=== PATIENT | male | born 1980 | race Two or more races ===

== ENCOUNTER 2023-09-10 09:45 | Outpatient (REF) | payer MEDICAID, SELFPAY ==
--- NOTE | ~2023-09-10 | XR_ITS ---
EXAMINATION: XR KNEE, LEFT CLINICAL INFORMATION: Left knee pain. COMPARISON: None available. TECHNIQUE: AP, oblique, and lateral views of the left knee. FINDINGS: No fracture or joint effusion. Alignment is anatomic. Joint spaces are maintained. No abnormal soft tissue calcification. XR/XR knee LT 2V IMPRESSION: Unremarkable examination.
== END 2023-09-10 09:46 | disposition home or self-care (01) ==
LOC: HO.HHCX 09:45
PROVIDERS: Visit Provider Nurse Practitioner
DX: M25.562 Pain in left knee (principal)
CPT/HCPCS: 73560

== ENCOUNTER 2024-07-10 18:45 | Inpatient (IN) | payer MEDICAID, SELFPAY ==
--- NOTE | ~2024-07-10 | CT_ITS ---
CLINICAL HISTORY: neck trauma CT cervical spine without contrast Comparison: None Findings: Examination is limited by motion artifact. Normal vertebral body alignment. No significant degenerative change. No acute fractures or dislocations. No acute findings on limited view of the intracranial contents. Ground-glass opacity of the lung parenchyma. Enlarged right cervical lymph nodes: 2 x 2.4 cm right level 2A lymph node. IMPRESSION: No acute fracture or malalignment of the cervical spine. Enlarged right cervical lymph nodes. Ground-glass opacity of the lung parenchyma. This document has been electronically signed by: Abelino Cruz MD on 07/10/2024 20:29:06
--- NOTE | ~2024-07-10 | CT_ITS ---
CLINICAL HISTORY: altered found down CT head without contrast Comparison: None Findings: No intra-axial mass, midline shift, hydrocephalus, or acute hemorrhage. No significant atrophy-like change or white matter disease. There is opacification of the right nasal cavity and ethmoid sinus. The orbits are within normal limits. There is no acute fracture. IMPRESSION: 1. No acute intracranial findings. This document has been electronically signed by: Abelino Cruz MD on 07/10/2024 20:34:13
--- NOTE | ~2024-07-10 | XR_ITS ---
CLINICAL HISTORY: overdose, hypoxia concern for aspiration 1 view chest x-ray Comparison: None Findings: Increased opacity of the right lung. There is opacity of the left lung base. Normal size heart. No acute fracture. IMPRESSION: There is opacities of the bilateral lungs. Pneumonia can not be excluded. This document has been electronically signed by: Abelino Cruz MD on 07/10/2024 20:19:31
[2024-07-10 19:00] VITALS: BP 149/98; PULSE 115; RESP 20; TEMP 37.2; O2SAT 95; BMI 38.8
--- NOTE | 2024-07-10 19:17 | ECG_ITS ---
Test Reason : OD Blood Pressure : */* mmHG Vent. Rate : 107 BPM Atrial Rate : 107 BPM P-R Int : 144 ms QRS Dur : 84 ms QT Int : 322 ms P-R-T Axes : 52 37 54 degrees QTcB Int : 429 ms Sinus tachycardia Otherwise normal ECG No previous ECGs available Referred By: Nathalie Guerrero Electronically Signed By: KSENIA KEEN
--- NOTE | 2024-07-10 19:23 | PC.NURSE ---
pt biba from home, alert but not answering questions at time of arrival. per ems, pt was found in bathroom by family, unresponsive, reports he was given 8mg of narcan. on arrival pt intermittently thrashing and pt is diaphoretic. pt is tachy 100-120bpm. foreign language interpreter brought to bedside. pt reports he injected heroin but denies si/hi. pt is reporting abdominal pain at this time. aware and at bedside.
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
[2024-07-10] MEDS: Metoclopramide HCl 10 MG/2 ML VIAL IVPUSH (20:00)
[2024-07-10 20:02] LABS: MANUAL DIFF FLAG NO
[2024-07-10 20:07] LABS: Basophils Percent Auto 0.2 % (0-2); Eosinophils Percent Auto 0.3 % (0-4); Hematocrit 41.2 % (42.0-52.0); Hemoglobin 13.4 g/dl (14.0-18.0); Imm Gran Abs Auto 0.05 X10*3/uL (0.00-0.03); Imm Gran Pct Auto 0.4 % (0.0-0.4); Lymphocytes Absolute Auto 0.9 X10*3/uL (1.2-4.9); Lymphocytes Percent Auto 6.4 % (20-40); Mean Corpuscular HGB Conc 32.5 g/dl (31.0-36.0); Mean Corpuscular Hemoglobin 27.3 pg (27.0-33.0); Mean Corpuscular Volume 84.1 fL (80.0-98.0); Mean Platelet Volume 10.4 fL (9.4-12.4); Monocytes Absolute Auto 0.7 X10*3/uL (0.1-1.2); Neutrophils Absolute Auto 11.8 x10*3/uL (2.0-8.3); Neutrophils Percent Auto 87.7 % (45-73); Platelet Count 273 X10*3/uL (160-400); Red Cell Distribution Width 13.5 % (11.0-16.0); White Blood Count 13.4 X10*3/uL (4.8-10.8)
--- NOTE | 2024-07-10 20:13 | PC.NURSE ---
pt is hard stick, x4 attempts made. at bedside placing ultrasound guided iv. one set of cultures obtained. attempting to obtain second set.
[2024-07-10 20:27] LABS: Alanine Aminotransferase 23 U/L (0-40); Albumin Level 3.9 g/dL (3.5-5.0); Alkaline Phosphatase 74 U/L (39-117); Anion Gap 12 (12-20); Aspartate Amino Transferase 36 U/L (5-37); Bilirubin Direct 0.1 mg/dL (0.0-0.5); Bilirubin Total 0.3 mg/dL (0.0-1.0); Blood Urea Nitrogen 9 mg/dL (9-16); Calcium 9.1 mg/dL (8.4-10.2); Carbon Dioxide 26 mmol/L (22-29); Chloride 109 mmol/L (96-108); Creatinine Clr Calc Pharmacy 152.8; Estimated Glomerular Filt Rate > 60; Ethanol < 10 mg/dL; Glucose Random 70 mg/dL (60-115); Lipase 32 U/L (8-78); Magnesium 2.2 mg/dL (1.6-2.6); Potassium 3.9 mmol/L (3.3-5.1); Sodium 143 mmol/L (135-145); Total Protein 7.7 g/dL (6.5-8.0)
[2024-07-10 20:29] LABS: Lactic Acid 2.2 mmol/L (0.5-2.0)
[2024-07-10] MEDS: Lactated Ringers 1,000 ML 999 ML IV (20:47)
[2024-07-10] MEDS: Piperacillin Sodium/Tazobactam 3.375 GM in 0.9 % Sodium Chloride 50 ML IV (20:47)
[2024-07-10 20:52] LABS: Troponin-I High Sensitivity 46.4 ng/L (<3.5-35.0)
--- NOTE | 2024-07-10 20:54 | P.HPHOSP_ITS ---
History of Present Illness Date of Service: 07/10/24 Chief Complaint: Altered mentation This is a 43-year-old male with pertinent history of mood disorder, polysubstance use disorder who was brought to the emergency department for evaluation after he was found unresponsive. Patient was found unresponsive by family and EMS was called. EMS gave 8 mg of Narcan and patient woke up. History obtained with the help of diplomatic interpreter/translator. Patient does admit injecting IV heroin on the day of presentation. Denies suicidal ideation. He states he was doing okay prior to passing out. Does complain of dyspnea and cough. Unable to obtain complete review of systems as he is lethargic. In the emergency department, patient was found requiring 2 L supplemental oxygen. Imaging with pneumonia. Also found to have leukocytosis. Review of Systems 2 Review of Systems: Yes Unobtainable due to mental status PMFSH Medical History Opiate use Pertinent family history: No family history of early CAD Social History Patient Tobacco Use Status: Tobacco use Unknown Advance Directives: No Advance Directives Information Provided: No Do you have a plan to hurt others: No Plan Meds Allergies Allergy/AdvReac Type Severity Reaction Status Date / Time No Known Allergies Allergy Verified 07/10/24 19:25 Active Medications: Current Medications Acetaminophen (Acetaminophen 325 Mg Tablet) 650 mg PO Q6H PRN PRN Reason: Pain, Mild 1-3,fever,headache Calcium Carbonate (Calcium Carbonate 750 Mg Tab.Chew) 750 mg PO Q4H PRN PRN Reason: Heartburn Enoxaparin Sodium (Enoxaparin Sodium 40 Mg/0.4 Ml Syringe) 40 mg SUBCUT Q24H JUANITA Lactated Ringer's (Lr) 1,000 mls @ 999 mls/hr IV .Q1H1M ONE Stop: 07/10/24 21:28 Last Admin: 07/10/24 20:47 Dose: 999 mls/hr Ampicillin Sodium/Sulbactam (Sodium 3 gm/ Sodium Chloride) 100 mls @ 200 mls/hr IV Q6H JUANITA Magnesium Hydroxide (Milk Of Magnesia 30 Ml Oral.Susp) 30 ml PO DAILY PRN PRN Reason: Constipation Melatonin (Melatonin 3 Mg Tablet) 6 mg PO BEDTIME PRN PRN Reason: Insomnia Ondansetron HCl (Ondansetron Hcl 4 Mg/2 Ml Vial) 4 mg IVPUSH Q8H PRN PRN Reason: Nausea and Vomiting Sodium Chloride (0.9 % Sodium Chloride Flush 3 Ml Syringe) [facility]ations ?Medication ?Instructions ?Recorded ?Confirmed ?Last Taken ?Type albuterol sulfate 90 mcg/actuation 2 puff inhalation Q4H PRN wheezing 07/10/24 Unknown History aerosol inhaler (Ventolin HFA) buprenorphine 8 mg-naloxone 2 mg film sublingual 07/10/24 Unknown History sublingual film (Suboxone) buprenorphine 8 mg-naloxone 2 mg film sublingual 07/10/24 Unknown History sublingual film (Suboxone) naloxone 4 mg/actuation nasal intranasal 07/10/24 Unknown History spray (Narcan) naloxone 4 mg/actuation nasal intranasal 07/10/24 Unknown History spray (Narcan) nicotine (polacrilex) 4 mg gum 4 mg PO 07/10/24 Unknown History nicotine 21 mg/24 hr daily 1 patch topical QAM 07/10/24 Unknown History transdermal patch Physical Exam 2 Vital Signs and Narrative: Vital Signs: Last Vital Signs Temp 98.9 F 07/10/24 19:00 Pulse 115 H 07/10/24 19:00 Resp 20 07/10/24 19:00 BP 149/98 H 07/10/24 19:00 Pulse Ox 95 07/10/24 19:00 O2 Del Method Room Air 07/10/24 19:00 BMI result Body Mass Index 38.8 Middle-aged male lying in bed in no distress on supplemental oxygen Neck supple, no JVD, upper lip swelling and facial bruising seen Regular rate and rhythm, S1-S2 heard Bilateral crackles heard Abdomen soft nontender, no guarding, no rigidity Patient is drowsy but awakens to verbal stimulus, answers questions and follows commands. No focal motor deficit Psych: Lethargic No pedal edema Results Labs 07/10/24 19:56 07/10/24 19:56 Labs: Laboratory Results - last 24 hr 07/10/24 19:56 MCV 84.1 MCH 27.3 MCHC 32.5 RDW 13.5 Plt Count 273 MPV 10.4 Immature Gran % (Auto) 0.4 Neut % (Auto) 87.7 H Lymph % (Auto) 6.4 L [place] % (Auto) 5.0 Eos % (Auto) 0.3 Baso % (Auto) 0.2 Lymph # (Auto) 0.9 L [place] # (Auto) 0.7 Eos # (Auto) 0.0 Baso # (Auto) 0.0 Abs Immat Gran (auto) 0.05 H Absolute Neuts (auto) 11.8 H Absolute Nucleated RBC 0.000 Nucleated RBC % (auto) 0.0 Anion Gap 12 Estim Creat Clear Calc 152.8 Estimated GFR > 60 Random Glucose 70 Lactic Acid 2.2 H* Calcium 9.1 Magnesium 2.2 Total Bilirubin 0.3 Direct Bilirubin 0.1 AST 36 ALT 23 Alkaline Phosphatase 74 Total Creatine Kinase 409 H Total Protein 7.7 Albumin 3.9 Lipase 32 Hold Green Top See Note Ethyl Alcohol < 10 Assessment and Plan (1) Aspiration pneumonia: Qualifiers: Aspiration pneumonia type: unspecified Laterality: bilateral Lung location: lower lobe of lung Qualified Code(s): J69.0 - Pneumonitis due to inhalation of food and vomit Status: Acute (2) Drug overdose: Qualifiers: Encounter type: initial encounter Injury intent: accidental or unintentional Qualified Code(s): T50.901A - Poisoning by unspecified drugs, medicaments and biological substances, accidental (unintentional), initial encounter Status: Acute (3) Acidosis, lactic: Status: Acute Plan This is a 43-year-old male with pertinent history of mood disorder, polysubstance use disorder who was brought to the emergency department for evaluation after he was found unresponsive. #. Acute toxic encephalopathy due to accidental overdose of heroin: Patient given 8 mg of Narcan. Continue to monitor mentation. #. Acute hypoxemic respiratory failure and sepsis due to aspiration pneumonia in the setting of above: Will admit patient with supplemental oxygen. Initiating IV Unasyn. Lactic acid blood culture obtained. Resuscitated IV crystalloids #. Polysubstance use disorder: Consulted Addiction Team. UDS pending #. Mood disorder: Patient mentioned he has been having uncontrolled anxiety and depression. Will consult psych to optimize #. Acute lactic acidosis due to sepsis #. Elevated troponin: Type 2 in the setting of increased demand Med rec pending DVT prophylaxis: Lovenox Full code Admit as inpatient and will require two night minimum hospital stay for supplemental oxygen, IV antibiotics (as above), which is not possible in a lesser acute setting. Quality Stroke Does the patient have a stroke diagnosis?: No VTE Prior VTE?: No VTE Risk Level:: Medical - moderate - high VTE Device Contraindication: Treatment Not Indicated VTE Drug Contraindication: N/A - Med Ordered
[2024-07-10 20:58] LABS: B Type Natriuretic Peptide 41 pg/mL (<100)
[2024-07-10 21:15] VITALS: BP 143/91; PULSE 95; RESP 20; TEMP 37.2; O2SAT 95
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
--- NOTE | 2024-07-10 21:40 | PC.NURSE ---
pt changed into green gown, pt arrived to ed naked, pt did not have any belongings.
[2024-07-10 22:01] LABS: Reflex Lactate? Lactic Acid Added
--- NOTE | 2024-07-10 22:19 | PHA.MEDREC ---
Addendum entered by Hannah Caldwell RP 07/10/24 22:24: Reviewed by [facility] Original Note: Pharmacy Consult ? Medication Reconciliation Pharmacy has completed the medication reconciliation. Spoke with patient utilizing translator and interpreter and he stated he is not taking any medications at this time and stated he just got out of intermediate about 1 week ago.
[2024-07-11] VITALS (8 sets, daily range): BP systolic 122–155; BP diastolic 74–92; PULSE 72–85; RESP 14–20; TEMP 36.6–37.3; O2SAT 92–98
[2024-07-11 01:12] LABS: Amphetamine Screen Urine Not Detected (Not Detect); Barbiturates, Urine Not Detected (Not Detect); Benzodiazepines Screen Urine Not Detected (Not Detect); Buprenorphine Scr Positive (Not Detect); Cannabinoid Screen Urine Not Detected (Not Detect); Cocaine Screen Urine POSITIVE (Not Detect); Fentanyl, urine POSITIVE (Not Detect); Methadone Screen, Urine Not Detected (Not Detect); Opiate Screen Urine POSITIVE (Not Detect); Oxycodone Screen Urine Not Detected (Not Detect); Phencyclidine Screen Urine Not Detected (Not Detect)
[2024-07-11] MEDS: Ampicillin Sodium/Sulbactam Na 3 GM in 0.9 % Sodium Chloride 100 ML IV ×4 (03:44→21:01)
[2024-07-11 06:16] LABS: MANUAL DIFF FLAG NO
[2024-07-11 06:35] LABS: Basophils Percent Auto 0.3 % (0-2); Eosinophils Absolute Auto 0.1 X10*3/uL (0.0-0.4); Eosinophils Percent Auto 0.4 % (0-4); Hematocrit 36.1 % (42.0-52.0); Hemoglobin 11.5 g/dl (14.0-18.0); Imm Gran Abs Auto 0.06 X10*3/uL (0.00-0.03); Imm Gran Pct Auto 0.4 % (0.0-0.4); Lymphocytes Absolute Auto 2.3 X10*3/uL (1.2-4.9); Lymphocytes Percent Auto 16.3 % (20-40); Mean Corpuscular HGB Conc 31.9 g/dl (31.0-36.0); Mean Corpuscular Hemoglobin 27.1 pg (27.0-33.0); Mean Corpuscular Volume 85.1 fL (80.0-98.0); Mean Platelet Volume 10.7 fL (9.4-12.4); Monocytes Absolute Auto 0.6 X10*3/uL (0.1-1.2); Monocytes Percent Auto 4.4 % (2-11); Neutrophils Absolute Auto 10.8 x10*3/uL (2.0-8.3); Neutrophils Percent Auto 78.2 % (45-73); Platelet Count 223 X10*3/uL (160-400); Red Blood Count 4.24 X10*6/uL (4.60-5.80); Red Cell Distribution Width 13.7 % (11.0-16.0); White Blood Count 13.9 X10*3/uL (4.8-10.8)
[2024-07-11 06:46] LABS: Anion Gap 10 (12-20); Blood Urea Nitrogen 11 mg/dL (9-16); Calcium 8.2 mg/dL (8.4-10.2); Carbon Dioxide 27 mmol/L (22-29); Chloride 107 mmol/L (96-108); Creatinine Clr Calc Pharmacy 174.4; Estimated Glomerular Filt Rate > 60; Glucose Random 87 mg/dL (60-115); Potassium 4.4 mmol/L (3.3-5.1); Sodium 140 mmol/L (135-145)
[2024-07-11] MEDS: 0.9 % Sodium Chloride Flush 3 ML SYRINGE IVFLUSH ×3 (08:00→23:09)
--- NOTE | 2024-07-11 09:02 | MHC.EDTECH ---
pt arrived to overflow, remains sleeping during transfer, call cortez placed in reach
--- NOTE | 2024-07-11 09:56 | HO.ADDICT_ITS ---
History of Present Illness Date of Service: 07/11/2024 Chief Complaint: AMS Reason for Consult: OUD with OD Sources of Information: patient interviewed and chart reviewed HPI Narrative: Patient is a 43 year old Sami speaking male, who presented to [facility] ED following overdose requiring narcan administration. He was subsequently admitted with aspiration pneumonia. Patient seen in overflow bed 5. He was asleep upon approach, and woke easily to voice. He appears diaphoretic, and reports body aches. Denies any other withdrawal sx He has a large abrasion on his forehead, and his lip is quite swollen. He has no recollection of what occurred, and asked who found him. He states he was at his mother's house. Substance Use History: -long history of opiate use. Day of OD he reports using 3 bags IV -currently prescribed Suboxone 8mg TID via [facility]. States he just restarted treatment there recently, and had been taking his medication daily, with the exception of yesterday. -Reports 2 previous overdoses -several admissions to [facility] level of care -history of methadone treatment--did not like it -cocaine use IV, currently -denies any alcohol use. denies any other substance use Labs reviewed---Hepatitis and HIV screen drawn today Review of Systems Constitutional: Reports as per HPI, Reports excessive sweating and Reports malaise Cardiovascular: Denies dyspnea Respiratory: Denies dyspnea Gastrointestinal: Denies loose stools and Denies nausea Endocrine: Reports excessive sweating Diagnostics Vital Signs (24Hr): Vital Signs - 24 hr 07/10/24 19:00 07/10/24 21:15 07/11/24 03:45 Temperature 98.9 F 99.0 F 99.1 F Pulse Rate 115 H 95 75 Respiratory Rate 20 20 16 Blood Pressure 149/98 H 143/91 H 122/82 Pulse Oximetry 95 95 98 Oxygen Delivery Method Room Air Nasal Cannula Nasal Cannula Oxygen Flow Rate 2 2 07/11/24 06:06 07/11/24 08:00 Temperature 98.4 F 98.7 F Pulse Rate 72 80 Respiratory Rate 14 16 Blood Pressure 139/84 134/81 Pulse Oximetry 96 96 Oxygen Delivery Method Room Air Nasal Cannula Oxygen Flow Rate 2 BMI result Body Mass Index 38.8 Labs 07/11/24 06:02 07/11/24 06:02 Labs: Laboratory Results - last 48 hr 07/10/24 07/11/24 07/11/24 19:56 00:52 06:02 WBC 13.4 H 13.9 H RBC 4.90 4.24 L Hgb 13.4 L 11.5 L Hct 41.2 L 36.1 L MCV 84.1 85.1 MCH 27.3 27.1 MCHC 32.5 31.9 RDW 13.5 13.7 Plt Count 273 223 MPV 10.4 10.7 Immature Gran % (Auto) 0.4 0.4 Neut % (Auto) 87.7 H 78.2 H Lymph % (Auto) 6.4 L 16.3 L [place] % (Auto) 5.0 4.4 Eos % (Auto) 0.3 0.4 Baso % (Auto) 0.2 0.3 Lymph # (Auto) 0.9 L 2.3 [place] # (Auto) 0.7 0.6 Eos # (Auto) 0.0 0.1 Baso # (Auto) 0.0 0.0 Abs Immat Gran (auto) 0.05 H 0.06 H Absolute Neuts (auto) 11.8 H 10.8 H Absolute Nucleated RBC 0.000 0.000 Nucleated RBC % (auto) 0.0 0.0 Sodium 143 140 Potassium 3.9 4.4 Chloride 109 H 107 Carbon Dioxide 26 27 Anion Gap 12 10 L BUN 9 11 Creatinine 0.81 0.71 Estim Creat Clear Calc 152.8 174.4 Estimated GFR > 60 > 60 Random Glucose 70 87 Lactic Acid 2.2 H* Calcium 9.1 8.2 L D Magnesium 2.2 Total Bilirubin 0.3 Direct Bilirubin 0.1 AST 36 ALT 23 Alkaline Phosphatase 74 Total Creatine Kinase 409 H Troponin I High Sens 46.4 H B-Natriuretic Peptide 41 Total Protein 7.7 Albumin 3.9 Lipase 32 Hold Green Top See Note Urine Opiates Screen POSITIVE H Ur Buprenorphine Scrn Positive H Ur Oxycodone Screen Not Detected Urine Methadone Screen Not Detected Urine Fentanyl Screen POSITIVE H Ur Barbiturates Screen Not Detected Ur Phencyclidine Scrn Not Detected Ur Amphetamines Screen Not Detected U Benzodiazepines Scrn Not Detected Urine Cocaine Screen POSITIVE H U Marijuana (THC) Screen Not Detected Ethyl Alcohol < 10 Mental Status Exam Mental Status Exam Patient Appearance: Appropriate ([facility], diaphoretic ) Patient Orientation: Person, Place, Time and Situation Level of Consciousness: Awake, Appropriate and Alert Patient Behavior: Appropriate Affect Description: Calm Speech Pattern: Clear Hallucinations: None Thought Process: Intact Thought Content: positive for Intact Judgement: Good Medications Medications Current Medications Acetaminophen (Acetaminophen 325 Mg Tablet) 650 mg PO Q6H PRN PRN Reason: Pain, Mild 1-3,fever,headache Calcium Carbonate (Calcium Carbonate 750 Mg Tab.Chew) 750 mg PO Q4H PRN PRN Reason: Heartburn Enoxaparin Sodium (Enoxaparin Sodium 40 Mg/0.4 Ml Syringe) 40 mg SUBCUT Q24H REPLACED BY [facility] Last Admin: 07/10/24 21:39 Dose: Not Given Ampicillin Sodium/Sulbactam (Sodium 3 gm/ Sodium Chloride) 100 mls @ 200 mls/hr IV Q6H REPLACED BY [facility] Last Admin: 07/11/24 08:01 Dose: 100 mls/hr Magnesium Hydroxide (Milk Of Magnesia 30 Ml Oral.Susp) 30 ml PO DAILY PRN PRN Reason: Constipation Melatonin (Melatonin 3 Mg Tablet) 6 mg PO BEDTIME PRN PRN Reason: Insomnia Ondansetron HCl (Ondansetron Hcl 4 Mg/2 Ml Vial) 4 mg IVPUSH Q8H PRN PRN Reason: Nausea and Vomiting Sodium Chloride (0.9 % Sodium Chloride Flush 3 Ml Syringe) 3 ml IVFLUSH QSHIFT REPLACED BY [facility] Last Admin: 07/11/24 08:00 Dose: 3 ml Allergies Allergies Allergy/AdvReac Type Severity Reaction Status Date / Time No Known Allergies Allergy Verified 07/10/24 19:25 Assessment & Plan Assessment & Plan (1) Opioid use disorder, severe, dependence: Status: Acute Code(s): F11.20 - Opioid dependence, uncomplicated Assessment and Plan: * restart buprenorphine -16mg x1 dose * reassess, and then plan to resume 8mg TID home dose * take home narcan * will likely need a Suboxone prescription until he can see his provider at [facility] next week (2) Cocaine use disorder: Status: Acute Code(s): F14.10 - Cocaine abuse, uncomplicated Assessment and Plan: * risk reduction discussion Total time managing care of this patient today _35___ minutes. PMFSH Past Medical History Medical History Opiate use Social History Social History Patient Tobacco Use Status: Tobacco use Unknown Smoked in Last 30 Days: No Use of substances other than those prescribed or required for medical reasons: Yes Substance Use Type: Heroin Advance Directives: No Advance Directives Information Provided: No Do you have a plan to hurt others: No Plan
[2024-07-11] MEDS: Buprenorphine HCL 8 MG TAB.SUBL 16 MG SUBLINGUAL (11:03)
[2024-07-11 11:05] LABS: Troponin-I High Sensitivity 34.2 ng/L (<3.5-35.0)
--- NOTE | 2024-07-11 11:34 | PC.NURSE ---
Patient requested and given vanilla ice cream to eat.
[2024-07-11 11:38] LABS: HBS Num1 > 1000.00 mIU/mL (0-7.99); HBc Num1 0.07 S/CO (0.00-0.79); HBsAGNum1 0.35 S/CO (0.00-0.99); HIV AB/AG Nonreactive (Nonreactive); Hepatitis B Core Antibody Nonreactive (Nonreactive); Hepatitis B Surface Antigen Negative (Negative); ~HepC Num1 17.18 S/CO (0.00-0.79); ~Hepatitis B Surface Antibody REACTIVE (Nonreactive); ~Hepatitis C Antibody Reactive (Nonreactive)
[2024-07-11] MEDS: ondansetron HCL 4 MG/2 ML VIAL IVPUSH (12:08)
--- NOTE | 2024-07-11 12:23 | PC.NURSE ---
Addendum entered by Anu Kunz 07/11/24 12:25: Was given Zofran per PRN orders to help with nausea complaint. Providers (Raymond & Melinda) aware. Original Note: Patient reports feeling sweaty/anxious. Visible diaphoresis noted. Given Subutex 16mg by previous RN about 1 hour ago. Contacted Vonda Andrade & Dr. Lawrence regarding this. Advised to give Subutex 8mg and Ativan 0.5mg. Reached out to pharmacy regarding both meds requesting to be brought to Overflow STAT. Awaiting medications, will administer upon receipt. Vitals updated & stable at this time. Patient is mildly agitated, asking this RN to hurry up . Aware that ordered medications aren't available in Overflow and pharmacy department is bringing the medications over as requested.
[2024-07-11] MEDS: LORazepam 2 MG/ML VIAL 0.5 MG IVPUSH (12:33)
[2024-07-11] MEDS: Buprenorphine HCL 8 MG TAB.SUBL SUBLINGUAL (12:47)
--- NOTE | 2024-07-11 13:07 | PC.NURSE ---
Vonda Andrade,FLIGHT NURSE to bedside speaking with patient. Symptoms have subsided after medication administrations. Care ongoing by this RN.
--- NOTE | 2024-07-11 13:47 | MHC.CM.PN ---
pt lives alone is indepoedent has a ride home
--- NOTE | 2024-07-11 14:51 | HO.PM.IMPN ---
Subjective Subjective Date of Service: 07/11/24 Interval History: anxious, withdrawing does not recall events leading to overdose This history was taken in [place] from the patient. Review of Systems Review of Systems: Yes all other systems are reviewed and are negative Physical Exam Vital Signs: Vital Signs: Last Vital Signs Temp 97.9 F 07/11/24 12:10 Pulse 85 07/11/24 12:10 Resp 20 07/11/24 12:10 BP 153/92 H 07/11/24 12:10 Pulse Ox 98 07/11/24 12:10 O2 Del Method Nasal Cannula 07/11/24 12:10 O2 Flow Rate 2 07/11/24 12:10 BMI result Body Mass Index 38.8 Gen: in no acute distress HEENT: sclera anicteric, moist mucus membranes Neck: supple Lungs: clear to auscultation bilaterally Heart: regular rate and rhythm, no murmurs Abd: soft, non-tender, non-distended Ext: no edema Skin: warm/well-perfused Neuro: alert and oriented x3, no focal findings Psych: appropriate affect Objective Data Active Medications Acetaminophen (Acetaminophen 325 Mg Tablet) 650 mg PO Q6H PRN PRN Reason: Pain, Mild 1-3,fever,headache Buprenorphine/Naloxone (Buprenorphine/Naloxone 8/2 Mg Film) 1 film SUBLINGUAL TID [facility] Calcium Carbonate (Calcium Carbonate 750 Mg Tab.Chew) 750 mg PO Q4H PRN PRN Reason: Heartburn Clonidine HCl (Clonidine Hcl 0.1 Mg Tablet) 0.1 mg PO BID PRN; Protocol PRN Reason: anxiety/restlessness Enoxaparin Sodium (Enoxaparin Sodium 40 Mg/0.4 Ml Syringe) 40 mg SUBCUT Q24H [facility] Last Admin: 07/10/24 21:39 Dose: Not Given Documented By: ARELIS Non-Admin Reason: Patient Refused Ampicillin Sodium/Sulbactam (Sodium 3 gm/ Sodium Chloride) 100 mls @ 200 mls/hr IV Q6H [facility] Last Admin: 07/11/24 08:01 Dose: 100 mls/hr Documented By: JONO Magnesium Hydroxide (Milk Of Magnesia 30 Ml Oral.Susp) 30 ml PO DAILY PRN PRN Reason: Constipation Melatonin (Melatonin 3 Mg Tablet) 6 mg PO BEDTIME PRN PRN Reason: Insomnia Ondansetron HCl (Ondansetron Hcl 4 Mg/2 Ml Vial) 4 mg IVPUSH Q8H PRN PRN Reason: Nausea and Vomiting Last Admin: 07/11/24 12:08 Dose: 4 mg Documented By: DINA Sodium Chloride (0.9 % Sodium Chloride Flush 3 Ml Syringe) [address] [facility] Last Admin: 07/11/24 08:00 Dose: 3 ml Documented By: JONO Labs 07/11/24 06:02 07/11/24 06:02 Labs: Laboratory Results - last 24 hr 07/10/24 07/11/24 07/11/24 19:56 00:52 06:02 MCV 84.1 85.1 MCH 27.3 27.1 MCHC 32.5 31.9 RDW 13.5 13.7 Plt Count 273 223 MPV 10.4 10.7 Immature Gran % (Auto) 0.4 0.4 Neut % (Auto) 87.7 H 78.2 H Lymph % (Auto) 6.4 L 16.3 L [place] % (Auto) 5.0 4.4 Eos % (Auto) 0.3 0.4 Baso % (Auto) 0.2 0.3 Lymph # (Auto) 0.9 L 2.3 [place] # (Auto) 0.7 0.6 Eos # (Auto) 0.0 0.1 Baso # (Auto) 0.0 0.0 Abs Immat Gran (auto) 0.05 H 0.06 H Absolute Neuts (auto) 11.8 H 10.8 H Absolute Nucleated RBC 0.000 0.000 Nucleated RBC % (auto) 0.0 0.0 Anion Gap 12 10 L Estim Creat Clear Calc 152.8 174.4 Estimated GFR > 60 > 60 Random Glucose 70 87 Lactic Acid 2.2 H* Calcium 9.1 8.2 L D Magnesium 2.2 Total Bilirubin 0.3 Direct Bilirubin 0.1 AST 36 ALT 23 Alkaline Phosphatase 74 Total Creatine Kinase 409 H B-Natriuretic Peptide 41 Total Protein 7.7 Albumin 3.9 Lipase 32 Hold Green Top See Note Urine Opiates Screen POSITIVE H Ur Buprenorphine Scrn Positive H Ur Oxycodone Screen Not Detected Urine Methadone Screen Not Detected Urine Fentanyl Screen POSITIVE H Ur Barbiturates Screen Not Detected Ur Phencyclidine Scrn Not Detected Ur Amphetamines Screen Not Detected U Benzodiazepines Scrn Not Detected Urine Cocaine Screen POSITIVE H U Marijuana (THC) Screen Not Detected Ethyl Alcohol < 10 Hep Bs Antigen Hep Bs Antibody Hep B Core Total Ab Hepatitis C Ab (EIA) HIV 1&2 Ab/P24 Ag 4thGn 07/11/24 10:25 MCV MCH MCHC RDW Plt Count MPV Immature Gran % (Auto) Neut % (Auto) Lymph % (Auto) [place] % (Auto) Eos % (Auto) Baso % (Auto) Lymph # (Auto) [place] # (Auto) Eos # (Auto) Baso # (Auto) Abs Immat Gran (auto) Absolute Neuts (auto) Absolute Nucleated RBC Nucleated RBC % (auto) Anion Gap Estim Creat Clear Calc Estimated GFR Random Glucose Lactic Acid Calcium Magnesium Total Bilirubin Direct Bilirubin AST ALT Alkaline Phosphatase Total Creatine Kinase B-Natriuretic Peptide Total Protein Albumin Lipase Hold Green Top Urine Opiates Screen Ur Buprenorphine Scrn Ur Oxycodone Screen Urine Methadone Screen Urine Fentanyl Screen Ur Barbiturates Screen Ur Phencyclidine Scrn Ur Amphetamines Screen U Benzodiazepines Scrn Urine Cocaine Screen U Marijuana (THC) Screen Ethyl Alcohol Hep Bs Antigen Negative Hep Bs Antibody REACTIVE Hep B Core Total Ab Nonreactive Hepatitis C Ab (EIA) Reactive H HIV 1&2 Ab/P24 Ag 4thGn Nonreactive Assessment and Plan (1) Opioid use disorder, severe, dependence: Status: Acute Plan d2 for 43yo M with mood disorder, polysubstance abuse [Utox positive for fentanyl, cocaine, opiates, buprenorphine] admitted after found unresponsive after overdose acute hypoxic respiratory failure and sepsis due to aspiration PNA - 4/3- ampicillin-sulbactam, follow BCx, supplemental O2, wean as tolerated acute toxic encephalopathy due to fentanyl overdose - resolved after 8mg naloxone troponin elevation - resolved; was likely demand due to toxicity as above OUD - Addiction Medicine consulted, started Suboxone HCV - viral load pending substance-associated mood disorder - Psych consultation VTE ppx - enoxaparin dispo - TBD In my clinical judgment, the patient requires continued inpatient hospitalization for the following reasons: hypoxia, IV ABX Total time managing care of this patient today: 35 minutes. Quality Stroke Does the patient have a stroke diagnosis?: No VTE Prior VTE?: No VTE Risk Level:: Medical - moderate - high VTE Device Contraindication: Treatment Not Indicated VTE Drug Contraindication: N/A - Med Ordered
--- NOTE | 2024-07-11 16:17 | PM.EVENT ---
Documented by User: Yesi Gill NP 07/11/24 16:17 Event Note Date of Service: 07/11/24 Event Note: psychiatric consult placed for psychiatry- depression and anxiety. pt currently asleep and in withdrawal. will revisit when more stable Time Spent With Patient Time: Total time managing care of this patient today ____ minutes. Documented by User: Shaq Cantu MD 07/13/24 19:32 Event Note Date of Service: 07/13/24
[2024-07-11] MEDS: Enoxaparin Sodium 40 MG/0.4 ML SYRINGE SUBCUT (21:00)
[2024-07-12] VITALS (9 sets, daily range): BP systolic 132–142; BP diastolic 77–96; PULSE 68–82; RESP 16–20; TEMP 36.9–37.2; O2SAT 92–96
[2024-07-12] MEDS: Ampicillin Sodium/Sulbactam Na 3 GM in 0.9 % Sodium Chloride 100 ML IV (03:46)
--- NOTE | 2024-07-12 06:14 | PC.NURSE ---
Patient slept most of the night, vitals stable. Patient easily arousable to name, patient alert to self and place, vague on time and situation. Patient calm, cooperative, no complaints of pain at this time, uses bedside urinal.
[2024-07-12] MEDS: Amoxicillin/Potassium Clav 875 MG TABLET PO ×2 (07:58→20:17)
[2024-07-12] MEDS: Buprenorphine/Naloxone 8/2 mg FILM 1 FILM SUBLINGUAL ×3 (07:58→22:20)
[2024-07-12] MEDS: 0.9 % Sodium Chloride Flush 3 ML SYRINGE IVFLUSH (07:58)
--- NOTE | 2024-07-12 08:52 | PC.NURSE ---
Ok to keep IV out per Dr. Lawrence
--- NOTE | 2024-07-12 12:00 | P.PNIM_ITS ---
Subjective Subjective Date of Service: 07/12/24 Interval History: feels better, minimal cough, withdrawal from heroin controlled This history was taken in Frisian from the patient. Review of Systems Review of Systems: Yes all other systems are reviewed and are negative Physical Exam 2 Vital Signs: Vital Signs: Last Vital Signs Temp 98.6 F 07/12/24 07:22 Pulse 68 07/12/24 07:22 Resp 16 07/12/24 07:22 BP 142/96 H 07/12/24 07:22 Pulse Ox 94 07/12/24 07:22 O2 Del Method Room Air 07/12/24 07:22 O2 Flow Rate 2 07/12/24 03:49 BMI result Body Mass Index 38.8 Gen: in no acute distress HEENT: sclera anicteric, moist mucus membranes Neck: supple Lungs: clear to auscultation bilaterally Heart: regular rate and rhythm, no murmurs Abd: soft, non-tender, non-distended Ext: no edema Skin: warm/well-perfused Neuro: alert and oriented x3, no focal findings Psych: appropriate affect Objective Data Active Medications Acetaminophen (Acetaminophen 325 Mg Tablet) 650 mg PO Q6H PRN PRN Reason: Pain, Mild 1-3,fever,headache Amoxicillin/Clavulanate Potassium (Amoxicillin/Potassium Clav 875 Mg Tablet) 875 mg PO Q12H [facility] Last Admin: 07/12/24 07:58 Dose: 875 mg Documented By: GREGG Buprenorphine/Naloxone (Buprenorphine/Naloxone 8/2 Mg Film) 1 film SUBLINGUAL TID [facility] Last Admin: 07/12/24 07:58 Dose: 1 film Documented By: GREGG Calcium Carbonate (Calcium Carbonate 750 Mg Tab.Chew) 750 mg PO Q4H PRN PRN Reason: Heartburn Clonidine HCl (Clonidine Hcl 0.1 Mg Tablet) 0.1 mg PO BID PRN; Protocol PRN Reason: anxiety/restlessness Enoxaparin Sodium (Enoxaparin Sodium 40 Mg/0.4 Ml Syringe) 40 mg SUBCUT Q24H [facility] Last Admin: 07/11/24 21:00 Dose: 40 mg Documented By: ATTILA Magnesium Hydroxide (Milk Of Magnesia 30 Ml Oral.Susp) 30 ml PO DAILY PRN PRN Reason: Constipation Melatonin (Melatonin 3 Mg Tablet) 6 mg PO BEDTIME PRN PRN Reason: Insomnia Ondansetron HCl (Ondansetron Hcl 4 Mg/2 Ml Vial) 4 mg IVPUSH Q8H PRN PRN Reason: Nausea and Vomiting Last Admin: 07/11/24 12:08 Dose: 4 mg Documented By: DINA Sodium Chloride (0.9 % Sodium Chloride Flush 3 Ml Syringe) 3 ml IVFLUSH QSHIFT [facility] Last Admin: 07/12/24 07:58 Dose: 3 ml Documented By: BEIT Labs 07/11/24 06:02 07/11/24 06:02 Microbiology Microbiology Results: Microbiology 07/10/24 20:38 Blood Culture - Preliminary Blood - Venous No growth after 24 hours. 07/10/24 19:56 Blood Culture - Preliminary Blood - Venous No growth after 24 hours. Assessment and Plan (1) Opioid use disorder, severe, dependence: Status: Acute Plan d3 for 43yo M with mood disorder, polysubstance abuse [Utox positive for fentanyl, cocaine, opiates, buprenorphine] admitted after found unresponsive after overdose acute hypoxic respiratory failure and sepsis due to aspiration PNA - 4/3-4/5 ampicillin-sulbactam, 4/5- amoxicillin-clavulanate, follow BCx, supplemental O2, wean as tolerated acute toxic encephalopathy due to fentanyl overdose - resolved after 8mg naloxone troponin elevation - resolved; was likely demand due to toxicity as above OUD - Addiction Medicine consulted, started Suboxone and will need Rx + Narcan upon discharge HCV - viral load pending substance-associated mood disorder - Psych consultation VTE ppx - enoxaparin dispo - TBD In my clinical judgment, the patient requires continued inpatient hospitalization for the following reasons: hypoxia Total time managing care of this patient today: 35 minutes. Quality Stroke Does the patient have a stroke diagnosis?: No VTE Prior VTE?: No VTE Risk Level:: Medical - moderate - high VTE Device Contraindication: Treatment Not Indicated VTE Drug Contraindication: N/A - Med Ordered
--- NOTE | 2024-07-12 12:08 | MHC.RECOVRN ---
Met with pt in [id number] to follow up and provide support with assistance from medical radiation tech. Pt awake, alert, easily engages in conversation. Pt reports feeling that he is comfortable on current dose of suboxone. Pt acknowledges his intention of F/U at [facility] for suboxone upon D/C.? Spoke with pt's nurse and requested a script be given to him for suboxone upon D/C as well as a script for Narcan. Floor nurse sent this request to provider. Pt denies other concerns at this time.? T/w available as needed.
[2024-07-12] MEDS: Enoxaparin Sodium 40 MG/0.4 ML SYRINGE SUBCUT (22:20)
[2024-07-13] MEDS: Amoxicillin/Potassium Clav 875 MG TABLET PO (07:30)
[2024-07-13] MEDS: Buprenorphine/Naloxone 8/2 mg FILM 1 FILM SUBLINGUAL (07:31)
[2024-07-13] MEDS: Acetaminophen 325 MG TABLET 650 MG PO (07:36)
[2024-07-13 07:39] VITALS: BP 128/80; PULSE 74; RESP 18; TEMP 36.4; O2SAT 96
[2024-07-13 08:00] VITALS: PULSE 72
--- NOTE | 2024-07-13 10:32 | PM.DS ---
DS: Providers Provider Date of Service: 07/13/24 Date of admission: 07/10/24 20:52 Date of discharge: 07/13/24 Primary care physician: None Physician Consults: 07/10/24 20:52 Addiction Medicine Provider Routine Consulting Provider: Addiction Covering Reason for consultation: Polysubstance use disorder 07/10/24 21:50 Consult to Psychiatry Routine Consulting Provider: [facility] Psych Covering Reason for consultation: uncontrolled depression anxiety 07/11/24 10:56 Inpt - Recovery Team Routine Comment: Reason for consultation: PEPE eval --risk reduciton discussion IVDU DS: Diagnosis Discharge Diagnosis (1) Opioid use disorder, severe, dependence: Status: Acute (2) Cocaine use disorder: Status: Acute (3) Aspiration pneumonia: Status: Acute (4) Drug overdose: Status: Acute (5) Toxic encephalopathy: Status: Acute (6) Acute respiratory failure with hypoxia: Status: Acute (7) Sepsis: Status: Acute (8) Hepatitis C antibody detected: Status: Acute DS: Summary Hospital Course Hospital Course: From the history and physical by the admitting hospitalist, Karen Carlos MD, 07/10/24: This is a 43-year-old male with pertinent history of mood disorder, polysubstance use disorder who was brought to the emergency department for evaluation after he was found unresponsive. Patient was found unresponsive by family and EMS was called. EMS gave 8 mg of Narcan and patient woke up. History obtained with the help of agribusiness internship. Patient does admit injecting IV heroin on the day of presentation. Denies suicidal ideation. He states he was doing okay prior to passing out. Does complain of dyspnea and cough. Unable to obtain complete review of systems as he is lethargic. In the emergency department, patient was found requiring 2 L supplemental oxygen. Imaging with pneumonia. Also found to have leukocytosis. 43yo M with mood disorder, polysubstance abuse [Utox positive for fentanyl, cocaine, opiates, buprenorphine] admitted after found unresponsive after overdose. Hospital course by problem: acute hypoxic respiratory failure and sepsis due to aspiration PNA - Treated with ampicillin-sulbactam 4/3-07/12, amoxicillin-clavulanate /5-07/15 [prescribed 2 days upon discharge], blood cultures negative, weaned off oxygen, sepsis physiology resolved acute toxic encephalopathy due to fentanyl overdose - Resolved after 8mg naloxone troponin elevation - Resolved; was likely demand due to toxicity as above OUD - Addiction Medicine consulted, started Suboxone and prescribed 8/2 mg tid films #9 upon discharge and will follow up with [facility]; also prescribed Narcan HCV antibody positive - Needs to establish primary care and follow up viral load, which is pending Time Attestation Discharge Coordination Time (in mins): 35 Quality: Safe Use of Opioids Does Pt have an Active Cancer Diagnosis on the Problem List?: No Quality: Stroke Does the patient have a stroke diagnosis?: No Physical Exam Vital Signs: Vital Signs: Last Vital Signs Temp 97.6 F 07/13/24 07:39 Pulse 74 07/13/24 07:39 Resp 18 07/13/24 07:39 BP 128/80 07/13/24 07:39 Pulse Ox 96 07/13/24 07:39 O2 Del Method Room Air, Ambu-Ba g 07/13/24 07:39 O2 Flow Rate 2 07/12/24 03:49 BMI result Body Mass Index 38.8 Gen: in no acute distress HEENT: sclera anicteric, moist mucus membranes Neck: supple Lungs: clear to auscultation bilaterally Heart: regular rate and rhythm, no murmurs Abd: soft, non-tender, non-distended Ext: no edema Skin: warm/well-perfused Neuro: alert and oriented x3, no focal findings Psych: appropriate affect DS: Data Data Completed and Pending Completed studies during hospitalization [Text1]: Laboratory Results WBC 13.9 X10*3/uL (4.8-10.8) H 07/11/24 06:02 RBC 4.24 X10*6/uL (4.60-5.80) L 07/11/24 06:02 Hgb 11.5 g/dl (14.0-18.0) L 07/11/24 06:02 Hct 36.1 % (42.0-52.0) L 07/11/24 06:02 MCV 85.1 fL (80.0-98.0) 07/11/24 06:02 MCH 27.1 pg (27.0-33.0) 07/11/24 06:02 MCHC 31.9 g/dl (31.0-36.0) 07/11/24 06:02 RDW 13.7 % (11.0-16.0) 07/11/24 06:02 Plt Count 223 X10*3/uL (160-400) 07/11/24 06:02 MPV 10.7 fL (9.4-12.4) 07/11/24 06:02 Immature Gran % (Auto) 0.4 % (0.0-0.4) 07/11/24 06:02 Neut % (Auto) 78.2 % (45-73) H 07/11/24 06:02 Lymph % (Auto) 16.3 % (20-40) L 07/11/24 06:02 [place] % (Auto) 4.4 % (2-11) 07/11/24 06:02 Eos % (Auto) 0.4 % (0-4) 07/11/24 06:02 Baso % (Auto) 0.3 % (0-2) 07/11/24 06:02 Lymph # (Auto) 2.3 X10*3/uL (1.2-4.9) 07/11/24 06:02 [place] # (Auto) 0.6 X10*3/uL (0.1-1.2) 07/11/24 06:02 Eos # (Auto) 0.1 X10*3/uL (0.0-0.4) 07/11/24 06:02 Baso # (Auto) 0.0 X10*3/uL (0.0-0.2) 07/11/24 06:02 Abs Immat Gran (auto) 0.06 X10*3/uL (0.00-0.03) H 07/11/24 06:02 Absolute Neuts (auto) 10.8 x10*3/uL (2.0-8.3) H 07/11/24 06:02 Absolute Nucleated RBC 0.000 X10*3/uL (0.0-0.012) 07/11/24 06:02 Nucleated RBC % (auto) 0.0 /100WBC (0.0-0.2) 07/11/24 06:02 Sodium 140 mmol/L (135-145) 07/11/24 06:02 Potassium 4.4 mmol/L (3.3-5.1) 07/11/24 06:02 Chloride 107 mmol/L (96-108) 07/11/24 06:02 Carbon Dioxide 27 mmol/L (22-29) 07/11/24 06:02 Anion Gap 10 (12-20) L 07/11/24 06:02 BUN 11 mg/dL (9-16) 07/11/24 06:02 Creatinine 0.71 mg/dL (0.5-1.4) 07/11/24 06:02 Estim Creat Clear Calc 174.4 07/11/24 06:02 Estimated GFR > 60 07/11/24 06:02 Random Glucose 87 mg/dL (60-115) 07/11/24 06:02 Lactic Acid 2.2 mmol/L (0.5-2.0) H* 07/10/24 19:56 Calcium 8.2 mg/dL (8.4-10.2) L D 07/11/24 06:02 Magnesium 2.2 mg/dL (1.6-2.6) 07/10/24 19:56 Total Bilirubin 0.3 mg/dL (0.0-1.0) 07/10/24 19:56 Direct Bilirubin 0.1 mg/dL (0.0-0.5) 07/10/24 19:56 AST 36 U/L (5-37) 07/10/24 19:56 ALT 23 U/L (0-40) 07/10/24 19:56 Alkaline Phosphatase 74 U/L (39-117) 07/10/24 19:56 Total Creatine Kinase 409 U/L (38-174) H 07/10/24 19:56 Troponin I High Sens 34.2 ng/L (<3.5-35.0) 07/11/24 10:26 B-Natriuretic Peptide 41 pg/mL (<100) 07/10/24 19:56 Total Protein 7.7 g/dL (6.5-8.0) 07/10/24 19:56 Albumin 3.9 g/dL (3.5-5.0) 07/10/24 19:56 Lipase 32 U/L (8-78) 07/10/24 19:56 Hold Green Top See Note 07/10/24 19:56 Urine Opiates Screen POSITIVE (Not Detect) H 07/11/24 00:52 Ur Buprenorphine Scrn Positive ng/mL (Not Detect) H 07/11/24 00:52 Ur Oxycodone Screen Not Detected ng/mL (Not Detect) 07/11/24 00:52 Urine Methadone Screen Not Detected ng/mL (Not Detect) 07/11/24 00:52 Urine Fentanyl Screen POSITIVE (Not Detect) H 07/11/24 00:52 Ur Barbiturates Screen Not Detected (Not Detect) 07/11/24 00:52 Ur Phencyclidine Scrn Not Detected (Not Detect) 07/11/24 00:52 Ur Amphetamines Screen Not Detected (Not Detect) 07/11/24 00:52 U Benzodiazepines Scrn Not Detected (Not Detect) 07/11/24 00:52 Urine Cocaine Screen POSITIVE (Not Detect) H 07/11/24 00:52 U Marijuana (THC) Screen Not Detected (Not Detect) 07/11/24 00:52 Ethyl Alcohol < 10 mg/dL 07/10/24 19:56 Hep Bs Antigen Negative (Negative) 07/11/24 10:25 Hep Bs Antibody REACTIVE (Nonreactive) 07/11/24 10:25 Hep B Core Total Ab Nonreactive (Nonreactive) 07/11/24 10:25 Hepatitis C Ab (EIA) Reactive (Nonreactive) H 07/11/24 10:25 HIV 1&2 Ab/P24 Ag 4thGn Nonreactive (Nonreactive) 07/11/24 10:25 Discharge Plan Discharge Anticipated Discharge Date/Time: 07/13/24 10:25 Patient Disposition: Home, Self-Care Discharge Diagnosis: opioid overdose polysubstance abuse disorder aspiration pneumonia hepatitis C antibody positive Referrals: [facility] [Provider Group] - 1 Week Physician,None [Primary Care Provider] - 1 Week Discharge Medications: New amoxicillin-pot clavulanate 875-125 mg Tablet 1 tab PO Q12H Qty: 4 0RF buprenorphine-naloxone [Suboxone] 8-2 mg Film 1 film sublingual TID Qty: 9 0RF naloxone 4 mg/actuation spray,non-aerosol 4 mg intranasal Q2M PRN (Reason: opioid overdose) Qty: 2 0RF Rx Instructions: spray 1 dose into ONE nostril; alternate nostrils w each dose until help arrives Discharge Orders: Discharge Order (Routine); Ordered 07/13/24 Ordered By: Dimitry Lawrence Diet: Advance to usual diet Activity on Discharge: As tolerated Stand Alone Forms: Patient Portal Discharge page Print Language: Unable To Collect Care Plan Goals: avoid drug use Health Concerns: opioid overdose polysubstance abuse disorder aspiration pneumonia hepatitis C antibody positive Plan of Treatment: amoxicillin-clavulanate twice daily for 2 days Suboxone to treat opioid disorder Narcan in case of overdose follow up with [facility] [place] avoid all substance abuse Assessment: See Discharge Summary.
--- NOTE | 2024-07-13 10:39 | MHC.CM.PN ---
Patient is discharged today, home self care. Patient will arrange for transportation home.
[2024-07-16 08:44] LABS: HCV Log PCR <1.18 NOT DETECTED Log IU/mL (NOT DETECTED); HepC Viral Load <15 NOT DETECTED IU/mL (NOT DETECTED)
== END 2024-07-13 10:40 | disposition home or self-care (01) | DRG 812 ==
LOC: HO.ED 20:59 → HO.EDOVER 21:07 → HO.S3 07-11 13:47
PROVIDERS: Admitting Provider Student in an Organized Health Care Education/Training Program; Emergency Provider Emergency Medicine; Visit Provider Family Medicine
DX: T40.411A Poisoning by fentanyl or fentanyl analogs, accidental (unintentional), initial encounter (principal); J96.01 Acute respiratory failure with hypoxia; J69.0 Pneumonitis due to inhalation of food and vomit; G92.8 Other toxic encephalopathy; A41.9 Sepsis, unspecified organism; F41.9 Anxiety disorder, unspecified; F32.A Depression, unspecified; E87.21 Acute metabolic acidosis; F11.20 Opioid dependence, uncomplicated; F14.10 Cocaine abuse, uncomplicated; I24.89 Other forms of acute ischemic heart disease; B19.20 Unspecified viral hepatitis C without hepatic coma
CPT/HCPCS: 36415; 70450; 71045; 72125; 80048; 80076; 80307; 82550; 83605; 83690; 83735; 83880; 84484; 85025; 86704; 86706; 86803; 87040; 87340; 87389; 87522; 93005; 99285; J0295; J0571; J1650; J2060; J2405; J2543; J2765; J7120; S9485

== ENCOUNTER → 2024-07-10 19:17 | Outpatient (BNV) | payer MEDICAID, SELFPAY | PROVIDERS: Emergency Provider Emergency Medicine; Visit Provider Nuclear Medicine | DX: R59.0 Localized enlarged lymph nodes (principal); R91.8 Other nonspecific abnormal finding of lung field; R41.82 Altered mental status, unspecified | CPT/HCPCS: 70450; 71045; 72125 ==

== ENCOUNTER → 2024-07-10 19:17 | Outpatient (BNV) | payer MEDICAID, SELFPAY | PROVIDERS: Admitting Provider Student in an Organized Health Care Education/Training Program; Emergency Provider Emergency Medicine; Visit Provider Internal Medicine | DX: R00.0 Tachycardia, unspecified (principal) | CPT/HCPCS: 93010 ==

== ENCOUNTER → 2024-07-10 20:52 | Outpatient (BNV) | payer MEDICAID, SELFPAY | PROVIDERS: Admitting Provider Student in an Organized Health Care Education/Training Program; Emergency Provider Emergency Medicine; Visit Provider Student in an Organized Health Care Education/Training Program | DX: J96.01 Acute respiratory failure with hypoxia (principal); A41.9 Sepsis, unspecified organism; F11.20 Opioid dependence, uncomplicated; F14.10 Cocaine abuse, uncomplicated; J69.0 Pneumonitis due to inhalation of food and vomit; T50.901A Poisoning by unspecified drugs, medicaments and biological substances, accidental (unintentional), initial encounter; G92.9 Unspecified toxic encephalopathy; R76.8 Other specified abnormal immunological findings in serum | CPT/HCPCS: 99223; 99232; 99239 ==

== ENCOUNTER → 2024-07-10 20:52 | Outpatient (BNV) | payer OTHER, SELFPAY | PROVIDERS: Admitting Provider Student in an Organized Health Care Education/Training Program; Emergency Provider Emergency Medicine; Visit Provider Nurse Practitioner Psychiatric/Mental Health | DX: F14.10 Cocaine abuse, uncomplicated (principal); F11.20 Opioid dependence, uncomplicated | CPT/HCPCS: 99499 ==